=== PATIENT | male | born 1970 | race Two or more races ===

== ENCOUNTER 2018-08-22 08:47 | Emergency (ER) | payer OTHER ==
[~2018-08-22] VITALS: Ht 172.7 cm; Wt 95.3 kg
[~2018-08-22 08:47] MED LIST: KETO10TA2 PO
[2018-08-22] MEDS ORDERED: VISTARIL25 MG PO (15:46)
[2018-08-22] MEDS ORDERED: NORFLEX100MG PO (15:53)
[2018-08-22] MEDS ORDERED: KETO10TA2 PO (15:53)
== END 2018-08-22 16:05 | disposition home or self-care (01) ==
LOC: ER 08:47
DX: R07.89 Other chest pain (principal); F06.4 Anxiety disorder due to known physiological condition

== ENCOUNTER 2019-09-04 01:52 | Emergency (ER) | payer OTHER ==
[~2019-09-04] VITALS: Ht 172.7 cm; Wt 98.9 kg
[~2019-09-04 01:52] MED LIST changes: +NORFLEX100MG PO; +VISTARIL25 MG PO
[2019-09-04] MEDS ORDERED: DICY20TA PO (04:17)
[2019-09-04] MEDS ORDERED: PEPCID AC20 MG PO (04:17)
== END 2019-09-04 04:32 | disposition home or self-care (01) ==
LOC: ER 01:52
DX: R11.2 Nausea with vomiting, unspecified (principal)

== ENCOUNTER 2021-03-12 12:16 | Emergency (ER) | payer OTHER ==
[~2021-03-12] VITALS: Ht 172.7 cm; Wt 99.8 kg
[~2021-03-12 12:16] MED LIST changes: +DICY20TA PO; +PEPCID AC20 MG PO
== END 2021-03-12 15:50 | disposition home or self-care (01) ==
LOC: ER 12:16
DX: H60.8X2 Other otitis externa, left ear (principal); H92.01 Otalgia, right ear

== ENCOUNTER → 2021-03-13 | Outpatient (CLI) | payer OTHER | END | disposition home or self-care (01) | LOC: OFIC 805 08:05 | PROVIDERS: ATTEND Otolaryngology Otology & Neurotology | DX: H60.8X2 Other otitis externa, left ear (principal); H92.02 Otalgia, left ear; H61.22 Impacted cerumen, left ear ==

== ENCOUNTER 2021-06-16 09:27 | Outpatient (CLI) | payer OTHER | END 2021-06-16 09:36 | disposition home or self-care (01) | LOC: SONOGRAMA 09:27 | PROVIDERS: ATTEND General Practice | DX: K80.80 Other cholelithiasis without obstruction (principal) ==

== ENCOUNTER 2022-12-12 03:11 | Inpatient (IN) | payer OTHER ==
[~2022-12-12] VITALS: Ht 177.8 cm; Wt 104.3 kg
[2022-12-12] MEDS ORDERED: ATORVASTATIN CA10 MG PO (03:23)
[2022-12-12] MEDS ORDERED: COZAAR50 MG PO (03:23)
--- NOTE | 2022-12-12 03:27 | NUR ---
SE RECIBE MASCULINO ALERTA Y ORIENTADO X3 QUIEN REFIERE DOLOR EN LA BOCA DEL [place] DESDE HACEN 3 HRS APROXIMADAMENTE Y VOMITO X1. SE MONITOREAN S/V Y SE UBICA.
--- NOTE | 2022-12-12 03:42 | NUR ---
PACIENTE EVALUADO POR DRA AVILES QUIEN ORDENA TX MEDICO, SE LE ORIENTA A PACIENTE SOBRE EL MISMO Y VERBALIZA ENTENDER, SE LE COLECTAN MUESTRAS Y SE LE ADMINISTRAN MEDICAMENTOS HAIM ORDEN MEDICA. PACIENTE MANEJADO POR MS [place] OLIVARES.
--- NOTE | 2022-12-12 07:28 | NUR ---
SE RECIBE PACIENTE ALERTA Y ORIENTADO X3. CAMA BAJA, BARANDAS ELEVADAS. CANALIZADO EN LA MANO IZQUIERDA. AREA DE VENOPUNCION PATENTE, RONY DE EDEMA Y ERITEMA.
--- NOTE | 2022-12-12 15:33 | NUR ---
SE REICBE PTE EN VERONICA CON BARANDAS ELEVADAS, CON UN H/L EN MANO IZQUIERDA. PTE PENDIENTE A SER ADMITIDO. ORIENTADO Y ALERTA X3 Y EDUCADO SOBRE PROCESO A SEGUIR EN EL AREA.
== END 2022-12-14 19:21 | disposition left against medical advice (07) | DRG 445 ==
LOC: ER 03:11 → MEDJ 17:51
PROVIDERS: ADMIT Internal Medicine; ATTEND Internal Medicine
PROC: BW40ZZZ Ultrasonography of Abdomen (ICD-10-PCS; principal; 2022-12-12)
PROC: BF37ZZZ Magnetic Resonance Imaging (MRI) of Pancreas (ICD-10-PCS; 2022-12-12)
DX: K80.20 Calculus of gallbladder without cholecystitis without obstruction (principal); M62.82 Rhabdomyolysis; E87.8 Other disorders of electrolyte and fluid balance, not elsewhere classified; K83.8 Other specified diseases of biliary tract; R79.82 Elevated C-reactive protein (CRP); R10.11 Right upper quadrant pain; I10 Essential (primary) hypertension; Z20.822 Contact with and (suspected) exposure to COVID-19

== ENCOUNTER 2024-11-08 06:44 | Outpatient (CLI) | payer OTHER ==
[~2024-11-08 06:44] MED LIST changes: +ATORVASTATIN CA10 MG PO; +COZAAR50 MG PO
[2024-11-08 07:28] LABS: HEMATOCRIT 40.2 % (39.0-48.0); HEMOGLOBIN 13.8 g/dL (13-16.00); MEAN CELL VOLUME 91.4 fL (80.0-100.00); MEAN CORPUSCULAR HEMOGLOBIN 31.5 pg (27.00-32.0); MEAN CORPUSCULAR HGB CONC 34.5 g/dl (32.0-36.0); PLATELET COUNT 229 K/uL (150-450); RED BLOOD COUNT 4.39 M/uL (4.00-6.00); RED CELL DISTRIBUTION WIDTH 13.4 % (11.5-14.5)
[2024-11-08 08:19] LABS: ALBUMIN 3.7 gm/dL (3.4-5.0); BILIRUBIN TOTAL 0.26 mg/dL (0.3-1.2); CALCIUM 9.6 mg/dL (8.5-10.1); CREATININE SERUM 0.78 mg/dL (0.70-1.30); GFR 102.96; GLOBULINA 3.7 G/DL (2.4-3.5); POTASSIUM 4.61 mEq/L (3.5-5.1); TOTAL PROTEIN 7.4 gm/dL (6.4-8.2)
== END 2024-11-08 07:05 | disposition home or self-care (01) ==
LOC: LAB 06:44
DX: K80.10 Calculus of gallbladder with chronic cholecystitis without obstruction (principal)

== ENCOUNTER 2024-11-08 07:38 | Outpatient (CLI) | payer OTHER | END 2024-11-08 07:41 | disposition home or self-care (01) | LOC: SONOGRAMA 07:38 | PROVIDERS: ATTEND Orthopaedic Surgery | DX: K80.10 Calculus of gallbladder with chronic cholecystitis without obstruction (principal) ==

== ENCOUNTER 2025-02-13 09:12 | Outpatient (CLI) | payer OTHER | END 2025-02-13 09:23 | disposition home or self-care (01) | LOC: MRI 09:12 | PROVIDERS: ATTEND Orthopaedic Surgery | DX: K80.11 Calculus of gallbladder with chronic cholecystitis with obstruction (principal) | CPT/HCPCS: 74183 ==